=== PATIENT | male | born 1945 | race Caucasian/White ===

== ENCOUNTER 2022-11-14 12:10 | Emergency (ER) | payer MEDICARE, OTHER ==
[2022-11-14 12:15] VITALS: BP 149/58
[2022-11-14 13:24] LABS: CORONAVIRUS COVID-19 NAA NEGATIVE (NEGATIVE); RESPIRATORY SYNCYTIAL VIR NAA NEGATIVE (NEGATIVE)
[2022-11-14 13:26] LABS: ANION GAP 14.1 meq/L (7-15)
[2022-11-14] MEDS ORDERED: predniSONE 20 MG Tab PO ONE (14:11)
[2022-11-14 21:52] VITALS: PULSE 87
== END 2022-11-14 14:20 | disposition home or self-care (01) ==
LOC: LL.ED 12:10
DX: J10.1 Influenza due to other identified influenza virus with other respiratory manifestations (principal); E78.00 Pure hypercholesterolemia, unspecified; I10 Essential (primary) hypertension; J44.9 Chronic obstructive pulmonary disease, unspecified; N40.1 Benign prostatic hyperplasia with lower urinary tract symptoms; C61 Malignant neoplasm of prostate; E66.9 Obesity, unspecified; Z68.30 Body mass index [BMI] 30.0-30.9, adult; Z79.82 Long term (current) use of aspirin; Z79.02 Long term (current) use of antithrombotics/antiplatelets; Z79.899 Other long term (current) drug therapy; Z20.822 Contact with and (suspected) exposure to COVID-19
CPT/HCPCS: 0241U; 36415; 71046; 80053; 85025; 99283; 99284; J7512

== ENCOUNTER 2024-03-22 02:57 | Emergency (ER) | payer MEDICARE, OTHER ==
[2024-03-22] MEDS: Albuterol 0.083% 2.5 MG/3 ML Neb Soln NEB ONE (03:31)
[2024-03-22 03:34] LABS: BASOPHILS ABSOLUTE AUTO 0.03 K/uL (0.00-0.20); BASOPHILS PERCENT AUTO 0.2 % (0.0-2.0); EOSINOPHILS ABSOLUTE AUTO 0.01 K/uL (0.00-0.50); EOSINOPHILS PERCENT AUTO 0.1 % (0.0-5.0); HEMOGLOBIN 10.4 g/dL (13.1-16.8); LYMPHOCYTES ABSOLUTE AUTO 0.46 K/uL (0.50-3.50); LYMPHOCYTES PERCENT AUTO 3.7 % (10.0-50.0); MEAN CORPUSCULAR HEMOGLOBIN 29.6 pg (28.2-33.3); MEAN CORPUSCULAR HGB CONC 31.5 g/dL (31.7-36.0); MONOCYTES ABSOLUTE AUTO 0.41 K/uL (0.00-1.00); MONOCYTES PERCENT AUTO 3.3 % (2.0-14.0); NEUTROPHILS ABSOLUTE AUTO 11.67 K/uL (1.40-7.00); NEUTROPHILS PERCENT AUTO 92.7 % (45.0-80.0); PLATELET COUNT,PLT 226 K/uL (150-350); RED BLOOD CELL COUNT 3.51 M/uL (4.33-5.41); RED CELL DISTRIBUTION WIDTH 15.5 % (11.2-14.1); WHITE BLOOD CELL COUNT,WBC 12.6 K/uL (4.0-10.2)
[2024-03-22 03:58] LABS: ALANINE AMINOTRANSFERASE,ALT 15 U/L (12-78); ALBUMIN 2.4 g/dL (3.4-5.0); ALKALINE PHOSPHATASE 69 IU/L (46-116); ASPARTATE AMNIOTRANSFERASE,AST 14 U/L (15-37); BILIRUBIN TOTAL 0.4 mg/dL (0.2-1.0); BLOOD UREA NITROGEN,BUN 36 mg/dL (7-18); CALCIUM 6.8 mg/dL (8.5-10.1); CARBON DIOXIDE,CO2 21.3 mmol/L (21.0-32.0); CHLORIDE,CL 109 mmol/L (98-107); CREATININE 1.47 mg/dL (0.51-1.17); GLUCOSE RANDOM 185 mg/dL (70-99); LIPASE 15 U/L (16-77); POTASSIUM,K 3.2 mmol/L (3.5-5.1); PRO B-TYPE NATRIUR PEPT,BNPPRO 5222 pg/mL (0-125); PROTEIN TOTAL,TP 5.8 g/dL (6.4-8.2); SODIUM,NA 143 mmol/L (136-145)
[2024-03-22 04:02] LABS: ANION GAP 15.9 meq/L (7-15); ESTIMATED GFR 48 mL/min (>=60)
[2024-03-22] MEDS: Furosemide 40 MG/4 ML VIAL IVPUSH ONE (04:29)
[2024-03-22] MEDS: cefTRIAXone 1 GM in Sodium Chloride 0.9% 100 ML IV ONE (04:35)
[2024-03-22] MEDS: Sodium Chloride 0.9% 500 ML IV SCH (04:35)
[2024-03-22 04:46] VITALS: BP 150/63; PULSE 90
[2024-03-22] MEDS: Azithromycin 500 MG in Sodium Chloride 0.9% 250 ML IV ONE (05:05)
== END 2024-03-22 05:30 ==
LOC: LL.ED 02:57
DX: A41.9 Sepsis, unspecified organism (principal); J18.9 Pneumonia, unspecified organism; I48.91 Unspecified atrial fibrillation; R79.89 Other specified abnormal findings of blood chemistry; J44.9 Chronic obstructive pulmonary disease, unspecified; I10 Essential (primary) hypertension; E78.00 Pure hypercholesterolemia, unspecified; Z86.73 Personal history of transient ischemic attack (TIA), and cerebral infarction without residual deficits; Z79.82 Long term (current) use of aspirin; Z79.899 Other long term (current) drug therapy
CPT/HCPCS: 36415; 71045; 80053; 83605; 83690; 83880; 84484; 85025; 87040; 93005; 93010; 96365; 96367; 96375; 99284; 99285-25; J0456; J0696; J1940; J3490; J7040; J7050; J7613-GY